=== PATIENT | male | born 1930 | race Caucasian/White ===

== ENCOUNTER 2018-03-16 12:16 | Inpatient (IN) | payer OTHER ==
[~2018-03-16] VITALS: Ht 162.6 cm; Wt 97.5 kg
[2018-03-16] MEDS ORDERED: SODIUM CHLORIDE FLUSH 10ML SYR IVF ONE ×2 (13:00)
[2018-03-16 13:03] LABS: BASOPHILS # (AUTO) 0.03 x10^3/uL (0-0.1); BASOPHILS % (AUTO) 0 % (0-1); EOSINOPHILS # (AUTO) 0.09 x10^3/uL (0-0.4); EOSINOPHILS % (AUTO) 1 % (1-7); LYMPHOCYTES # (AUTO) 1.26 x10^3/uL (1-3.4); LYMPHOCYTES % (AUTO) 13 % (22-44); MD NO; MEAN CORPUSCULAR HEMOGLOBIN 31.6 pg (27.5-34.5); MEAN CORPUSCULAR HGB CONC 32.9 g/dL (33.2-36.2); MEAN PLATELET VOLUME 8.8 fL (7.4-10.4); MONOCYTES # (AUTO) 1.23 x10^3/uL (0.2-0.8); MONOCYTES % (AUTO) 12 % (2-9); NEUTROPHILS # (AUTO) 7.41 x10^3/uL (1.8-6.8); NEUTROPHILS % (AUTO) 74 % (42-75); PLATELET COUNT 224 x10^3/uL (130-400); RED BLOOD COUNT 4.26 x10^6/uL (4.38-5.82); RED CELL DISTRIBUTION WIDTH 13.8 % (9.4-14.8)
[2018-03-16 13:11] LABS: INTERNATIONAL NORMALIZED RATIO 0.95 (0.93-1.1); PROTHROMBIN TIME 9.9 Seconds (9.6-11.5)
[2018-03-16 13:12] LABS: CALCIUM 9.2 mg/dL (8.5-10.1); CHLORIDE 106 mmol/L (98-107)
[2018-03-16 13:14] LABS: ALBUMIN 3.8 g/dL (3.4-5.0); ANION GAP 9 mmol/L (5-15)
[2018-03-16 13:26] LABS: ALANINE AMINOTRANSFERASE 29 U/L (12-78); ALKALINE PHOSPHATASE 81 U/L (45-117); BILIRUBIN,TOTAL 0.4 mg/dL (0.2-1.0); CREATININE 1.03 mg/dL (0.7-1.3); TOTAL PROTEIN 7.3 g/dL (6.4-8.2)
[2018-03-16] MEDS ORDERED: LIDOCAINE-MPF 1%, 5ML ONE (15:41)
[2018-03-16] MEDS ORDERED: FENTANYL PF 100 MCG/2ML ONE (15:43)
[2018-03-16] MEDS ORDERED: MIDAZOLAM 1 MG/ML, 5ML ONE ×2 (15:43→15:58)
[2018-03-16] MEDS ORDERED: FLUMAZENIL 0.1 MG/1 ML, 5ML ONE (15:44)
[2018-03-16] MEDS ORDERED: NALOXONE 1 MG/ML, 2ML ONE (15:44)
[2018-03-16] MEDS ORDERED: METO200T47 PO (16:20)
[2018-03-16] MEDS ORDERED: ACETAMINOPHEN 325 MG TABLET PO PRN (17:00)
[2018-03-16] MEDS ORDERED: ONDANSETRON ODT 4 MG PO PRN (17:00)
[2018-03-16] MEDS ORDERED: ONDANSETRON 2MG/ML, 2ML IVPush PRN (17:00)
[2018-03-16 19:01] VITALS: BP 129/77
[2018-03-16] MEDS: HYDROcodone/APAP 5/325 TABLET PO PRN (21:02)
[2018-03-17 02:10] VITALS: BP 168/79
[2018-03-17] MEDS: HYDROcodone/APAP 5/325 TABLET PO PRN ×2 (02:10→17:28)
[2018-03-17 05:14] LABS: BASOPHILS # (AUTO) 0.03 x10^3/uL (0-0.1); BASOPHILS % (AUTO) 0 % (0-1); EOSINOPHILS # (AUTO) 0.06 x10^3/uL (0-0.4); EOSINOPHILS % (AUTO) 1 % (1-7); LYMPHOCYTES # (AUTO) 1.14 x10^3/uL (1-3.4); LYMPHOCYTES % (AUTO) 15 % (22-44); MD NO; MEAN CORPUSCULAR HEMOGLOBIN 32.1 pg (27.5-34.5); MEAN CORPUSCULAR HGB CONC 33.6 g/dL (33.2-36.2); MEAN CORPUSCULAR VOLUME 95.5 fL (81-97); MEAN PLATELET VOLUME 9.1 fL (7.4-10.4); MONOCYTES # (AUTO) 0.93 x10^3/uL (0.2-0.8); MONOCYTES % (AUTO) 12 % (2-9); NEUTROPHILS # (AUTO) 5.31 x10^3/uL (1.8-6.8); NEUTROPHILS % (AUTO) 71 % (42-75); PLATELET COUNT 199 x10^3/uL (130-400); RED BLOOD COUNT 3.81 x10^6/uL (4.38-5.82)
[2018-03-17 05:19] LABS: ANION GAP 8 mmol/L (5-15); CALCIUM 8.1 mg/dL (8.5-10.1); CHLORIDE 104 mmol/L (98-107)
[2018-03-17] MEDS ORDERED: METOPROLOL SUCCINATE 100 MG TAB.ER.24H PO SCH (06:00)
[2018-03-17 07:31] VITALS: BP 152/87
[2018-03-17] MEDS: SENNA/DOCUSATE TABLET PO SCH (08:31)
[2018-03-17 12:35] VITALS: BP 153/63
[2018-03-17 19:43] VITALS: BP 120/73
[2018-03-18 02:00] VITALS: BP 126/78
[2018-03-18] MEDS: HYDROcodone/APAP 5/325 TABLET PO PRN ×2 (04:54→13:07)
[2018-03-18 04:55] VITALS: BP 148/79
[2018-03-18] MEDS: METOPROLOL TARTRATE 25 MG TABLET PO SCH (04:59)
[2018-03-18 07:20] VITALS: BP 150/85
[2018-03-18] MEDS: SENNA/DOCUSATE TABLET PO SCH (07:40)
[2018-03-18 14:00] VITALS: BP 149/88
[2018-03-18 19:40] VITALS: BP 144/81
[2018-03-19 05:12] VITALS: BP 130/84
[2018-03-19] MEDS: METOPROLOL TARTRATE 25 MG TABLET PO SCH (05:13)
[2018-03-19 05:15] VITALS: BP 138/82
[2018-03-19 06:18] VITALS: BP 154/72
[2018-03-19 08:05] VITALS: BP 157/80
[2018-03-19] MEDS: SENNA/DOCUSATE TABLET PO SCH (08:26)
[2018-03-19 12:51] VITALS: BP 102/61
== END 2018-03-19 13:30 | disposition home or self-care (01) | DRG 184 ==
LOC: ED 12:39 → EDIP 15:29 → 4NOR 16:42 → DCLOUNGE 03-19 13:07
PROVIDERS: ADMIT Internal Medicine; ATTEND Hospitalist
PROC: 0W9930Z Drainage of Right Pleural Cavity with Drainage Device, Percutaneous Approach (ICD-10-PCS; principal; 2018-03-16)
DX: S22.41XA Multiple fractures of ribs, right side, initial encounter for closed fracture (principal); S27.301A Unspecified injury of lung, unilateral, initial encounter; I70.0 Atherosclerosis of aorta; W18.30XA Fall on same level, unspecified, initial encounter; I10 Essential (primary) hypertension; Z87.11 Personal history of peptic ulcer disease; Y93.89 Activity, other specified; Y92.89 Other specified places as the place of occurrence of the external cause; Z98.49 Cataract extraction status, unspecified eye
CPT/HCPCS: 32551; 32557; 36415; 71045; 71046; 71260; 80048; 80053; 85025; 85610; 85730; 93005; 99291; G0378; J2250; J3010; C1729; C1769; J2310